=== PATIENT | male | born 1990 | race Caucasian/White ===

== ENCOUNTER 2016-11-21 06:16 | Emergency (ER) | payer OTHER ==
[~2016-11-21] VITALS: Ht 175.3 cm; Wt 95.5 kg
[~2016-11-21 06:16] MED LIST: FLOMAX 0.40.4 MG/CAP PO; NORCO 325 MG-51 TAB PO; PERCOCET 325 MG1 TA2 PO; ZOFRAN8 MG PO
[2016-11-21 06:19] VITALS: PULSE 74; TEMP 97.3
[2016-11-21] MEDS ORDERED: NORCO 325 MG-51 TAB PO (06:40)
[2016-11-21] MEDS ORDERED: PHENERGAN 25 TA25 MG PO (06:40)
[2016-11-21] MEDS ORDERED: FLOMAX 0.40.4 MG/CAP PO (06:40)
[2016-11-21 07:05] LABS: BASO % 0.6 % (0.0-2.0); EOS # 0.3 (0.0-0.7); GRAN # 2.8 (1.4-6.5); GRAN % 52.8 % (42.2-75.2); HEMATOCRIT 42.7 % (42.0-52.0); HEMOGLOBIN 14.9 g/dl (13.5-18.0); LYMPH # 1.9 (1.2-3.4); LYMPH % 34.5 % (20.0-51.0); MEAN CELL VOLUME 85 fl (80.0-100.0); MEAN CORPUSCULAR HEMOGLOBIN 30 pg (27.0-31.0); MEAN CORPUSCULAR HGB CONC 35 g/dl (33.0-37.0); MONO # 0.4 (0.1-0.6); MONO % 6.9 % (1.7-9.3); PLATELET COUNT 181 K/mm3 (130-400); RED BLOOD COUNT 5.05 M/mm3 (4.20-5.60); REDCELL DISTRIBUTION WIDTH-CV 12.9 % (11.5-14.5); WHITE BLOOD COUNT 5.4 K/mm3 (4.8-10.8)
[2016-11-21 07:16] LABS: ADJUSTED CALCIUM 8.8 mg/dL (8.4-10.2); ALBUMIN 4.4 gm/dL (3.5-5.0); BILIRUBIN,TOTAL 0.6 mg/dL (0.0-1.0); CALCIUM 9.1 mg/dL (8.4-10.2); CREATININE, serum 0.84 mg/dL (0.66-1.25); TOTAL PROTEIN 7.3 gm/dL (6.4-8.2)
[2016-11-21 07:41] LABS: PH 5 (5-8); SQUAMOUS EPITHELIAL 0-2 /hpf; URINE APPEARANCE Clear; URINE BACTERIA None Seen /hpf; URINE BILIRUBIN Negative (NEGATIVE); URINE BLOOD 3+ (NEGATIVE); URINE COLOR Yellow; URINE GLUCOSE Negative (NEGATIVE); URINE KETONE Negative (NEGATIVE); URINE RBC >50 /hpf; URINE UROBILINOGEN Negative (NEGATIVE); URINE WBC 0-2 /hpf
[2016-11-21 07:48] VITALS: BP 121/89
== END 2016-11-21 07:50 | disposition home or self-care (01) ==
LOC: COL.ER 06:16
PROVIDERS: Emergency Medicine
DX: N20.1 Calculus of ureter (principal); Z87.442 Personal history of urinary calculi
CPT/HCPCS: J1170; J1885; J2405; J7030

== ENCOUNTER 2017-02-11 18:43 | Emergency (ER) | payer OTHER ==
[~2017-02-11] VITALS: Ht 177.8 cm; Wt 100.0 kg
[~2017-02-11 18:43] MED LIST changes: +PHENERGAN 25 TA25 MG PO
[2017-02-11 18:45] VITALS: TEMP 97.8
[2017-02-11 19:13] LABS: HEMATOCRIT 43.2 % (42.0-52.0); HEMOGLOBIN 15.1 g/dl (13.5-18.0); MEAN CELL VOLUME 85 fl (80.0-100.0); MEAN CORPUSCULAR HEMOGLOBIN 30 pg (27.0-31.0); MEAN CORPUSCULAR HGB CONC 35 g/dl (33.0-37.0); MEAN PLATELET VOLUME 10.6 fl (7.4-10.4); PLATELET COUNT 222 K/mm3 (130-400); RED BLOOD COUNT 5.08 M/mm3 (4.20-5.60); WHITE BLOOD COUNT 7.9 K/mm3 (4.8-10.8)
[2017-02-11 19:20] LABS: ADD PATHOLOGY DIFF REVIEW NO
[2017-02-11 19:22] LABS: CALCIUM 9.7 mg/dL (8.4-10.2); CREATININE, serum 0.99 mg/dL (0.66-1.25)
[2017-02-11 19:27] LABS: BAND 4 % (0-10); EOSINOPHIL 1 % (0-4); MYELOCYTE 1 % (0-0); NEUTROPHILS 79 % (42.0-75.2); PLATELET ESTIMATE NORMAL (NORMAL); TOTAL CELLS COUNTED 100
[2017-02-11 19:28] LABS: LYMPHOCYTE 15 % (20.0-51.0)
[2017-02-11 19:43] LABS: COLLECTION METHOD CLEAN CATCH
[2017-02-11 19:53] LABS: MUCOUS Present /lpf; PH 6 (5-8); SQUAMOUS EPITHELIAL 0-2 /hpf; URINE APPEARANCE Cloudy; URINE BACTERIA None Seen /hpf; URINE BILIRUBIN Negative (NEGATIVE); URINE BLOOD 3+ (NEGATIVE); URINE COLOR Yellow; URINE GLUCOSE Negative (NEGATIVE); URINE KETONE Negative (NEGATIVE); URINE LEUKOCYTE ESTERASE Negative (NEGATIVE); URINE PROTEIN(semi-quant) 1+ (NEGATIVE); URINE RBC >50 /hpf; URINE UROBILINOGEN Negative (NEGATIVE); URINE WBC None Seen /hpf
[2017-02-11] MEDS ORDERED: ZYRTEC 10MG10 MG PO (19:57)
[2017-02-11] MEDS ORDERED: SUDAFED60 MG PO (19:58)
[2017-02-11] MEDS ORDERED: PREDNISONE20 MG PO (19:59)
[2017-02-11] MEDS ORDERED: TESSALON P100 MG/CAP PO (19:59)
[2017-02-11] MEDS ORDERED: ZITHROMAX Z PA250 MG PO (20:00)
[2017-02-11] MEDS ORDERED: VENTOLIN0.09 MG IH (20:01)
[2017-02-11 20:14] VITALS: BP 135/96
[2017-02-11 21:03] VITALS: PULSE 100
== END 2017-02-11 21:09 | disposition home or self-care (01) ==
LOC: COL.ER 18:43
PROVIDERS: Emergency Medicine
DX: N20.1 Calculus of ureter (principal)
CPT/HCPCS: J1170; J1885; J2405; J7030